=== PATIENT | female | born 1940 | race Caucasian/White ===

== ENCOUNTER → 2017-02-03 | Outpatient (CLI) | payer MEDICARE, BC ==
[~2017-02-03] MED LIST: ASPI325T PO; CLON0.5T PO; LABE200T2 PO; LANO0.2510 PO; LEVO.125 PO; LOSA100T3 PO; METF500T PO; MULTTAB67 PO; SUCR1TAB PO
[2017-02-03 17:30] LABS: BASOPHIL % 0.4 % (0.0-2.0); EOSINOPHIL # 0.2 TH/MM3 (0-0.4); EOSINOPHIL % 3.1 % (0.0-4.0); HEMATOCRIT 36.8 % (35.0-46.0); HEMO FLAGS DIFF FINAL; LYMPHOCYTE # 1.4 TH/MM3 (1.0-4.8); MEAN CELL VOLUME 89.4 FL (80.0-100.0); MEAN CORPUSCULAR HEMOGLOBIN 29.9 PG (27.0-34.0); MEAN CORPUSCULAR HGB CONC 33.5 % (32.0-36.0); MONO % 9.5 % (0.0-8.0); PLATELET COUNT 189 TH/MM3 (150-450); RED BLOOD COUNT 4.11 MIL/MM3 (4.00-5.30); RED CELL DISTRIBUTION WIDTH 13.6 % (11.6-17.2); WHITE BLOOD COUNT 7.4 TH/MM3 (4.0-11.0)
[2017-02-03 18:07] LABS: ALKALINE PHOSPHATASE 56 U/L (45-117); ALT (GPT) 79 U/L (10-53); ANION GAP 12 MEQ/L (5-15); AST (GOT) 28 U/L (15-37); BICARBONATE 30.2 MEQ/L (21.0-32.0); BLOOD UREA NITROGEN 12 MG/DL (7-18); CHLORIDE 97 MEQ/L (98-107); FREE T4 1.18 NG/DL (0.76-1.46); GLOMERULAR FILTRATION RATE 71 ML/MIN (>89); GLUCOSE,FASTING 152 MG/DL (74-99); HDL CHOLESTEROL 40.7 MG/DL (40.0-60.0); LDL CHOLESTEROL 55 MG/DL (0-99); POTASSIUM 4.3 MEQ/L (3.5-5.1); SODIUM (NA) 139 MEQ/L (136-145); TOTAL BILIRUBIN ADULT 0.9 MG/DL (0.2-1.0)
== END ==
LOC: PLAB 12:20
PROVIDERS: ATTEND Family Medicine
DX: I10 Essential (primary) hypertension (principal); I48.91 Unspecified atrial fibrillation; I09.1 Rheumatic diseases of endocardium, valve unspecified; E78.2 Mixed hyperlipidemia
CPT/HCPCS: 36415; 80053; 80061; 84439; 84443; 85025

== ENCOUNTER → 2017-08-19 | Outpatient (CLI) | payer MEDICARE, BC ==
[~2017-08-19] MED LIST changes: +ASPI-183 PO; -ASPI325T PO
[2017-08-19 16:27] LABS: AUTOMATED NEUTROPHIL # 4.3 TH/MM3 (1.8-7.7); BASOPHIL % 0.5 % (0.0-2.0); EOSINOPHIL # 0.2 TH/MM3 (0-0.4); EOSINOPHIL % 3.2 % (0.0-4.0); HEMATOCRIT 36.3 % (35.0-46.0); HEMO FLAGS DIFF FINAL; LYMPH % 21.7 % (9.0-44.0); LYMPHOCYTE # 1.4 TH/MM3 (1.0-4.8); MEAN CELL VOLUME 88.9 FL (80.0-100.0); MEAN CORPUSCULAR HGB CONC 33.8 % (32.0-36.0); MONO % 6.2 % (0.0-8.0); NEUT % 68.4 % (16.0-70.0); PLATELET COUNT 211 TH/MM3 (150-450); RED BLOOD COUNT 4.09 MIL/MM3 (4.00-5.30); RED CELL DISTRIBUTION WIDTH 13.5 % (11.6-17.2); WHITE BLOOD COUNT 6.3 TH/MM3 (4.0-11.0)
[2017-08-19 16:35] LABS: ANION GAP 7 MEQ/L (5-15); AST (GOT) 18 U/L (15-37); BICARBONATE 29.8 MEQ/L (21.0-32.0); BLOOD UREA NITROGEN 15 MG/DL (7-18); CHLORIDE 101 MEQ/L (98-107); GLOMERULAR FILTRATION RATE 70 ML/MIN (>89); GLUCOSE,FASTING 161 MG/DL (74-99); POTASSIUM 3.9 MEQ/L (3.5-5.1); SODIUM (NA) 138 MEQ/L (136-145)
[2017-08-19 16:46] LABS: ALKALINE PHOSPHATASE 62 U/L (45-117); ALT (GPT) 34 U/L (10-53); FREE T4 1.37 NG/DL (0.76-1.46); HDL CHOLESTEROL 39.6 MG/DL (40.0-60.0); LDL CHOLESTEROL 49 MG/DL (0-99); TOTAL BILIRUBIN ADULT 0.9 MG/DL (0.2-1.0)
[2017-08-19 18:40] LABS: HEMOGLOBIN A1a 1.2 %; HEMOGLOBIN A1b 1.3 %; HEMOGLOBIN Ao 82.4 %; HEMOGLOBIN F 1.1 %; HEMOGLOBIN LA1C 2.4 %; HEMOGLOBIN P3 4.1 %
== END ==
LOC: PLAB 13:36
PROVIDERS: ATTEND Family Medicine
DX: I10 Essential (primary) hypertension (principal); E03.9 Hypothyroidism, unspecified; C16.9 Malignant neoplasm of stomach, unspecified; E11.65 Type 2 diabetes mellitus with hyperglycemia; E78.2 Mixed hyperlipidemia
CPT/HCPCS: 36415; 80053; 80061; 83036; 84439; 84443; 85025

== ENCOUNTER → 2018-02-25 | Outpatient (CLI) | payer MEDICARE, BC ==
[2018-02-25 14:14] LABS: CREATININE 0.87 MG/DL (0.50-1.00)
== END ==
LOC: PLAB 11:43
DX: K62.5 Hemorrhage of anus and rectum (principal)
CPT/HCPCS: 36415; 82565; 84520